=== PATIENT | male | born 1945 | race Caucasian/White ===

== ENCOUNTER → 2017-04-30 | Outpatient (CLI) | payer MEDICARE, OTHER ==
[2004-08-20 09:15] VITALS: TEMP 97.5
[~2017-04-30] MED LIST: COUMADIN4 MG PO; LOMOTIL TAB 01 UDTAB PO; LOTENSIN40 MG PO; NEXIUM 40MG40 MG PEG; PENTASA PO; PERCOCET 325 MG1 TA2 PO; PHENERGAN 25 TA25 MG PO; ZOCOR
== END ==
LOC: COL.VAS 14:01
DX: C83.39 Diffuse large B-cell lymphoma, extranodal and solid organ sites (principal); I25.10 Atherosclerotic heart disease of native coronary artery without angina pectoris; I51.7 Cardiomegaly

== ENCOUNTER → 2018-04-04 | Outpatient (CLI) | payer MEDICARE, OTHER | LOC: COL.RAD 10:15 | DX: Z01.818 Encounter for other preprocedural examination (principal); C85.89 Other specified types of non-Hodgkin lymphoma, extranodal and solid organ sites; Z98.890 Other specified postprocedural states | CPT/HCPCS: A9585 ==

== ENCOUNTER → 2021-07-03 | Outpatient (CLI) | payer MEDICARE, OTHER | LOC: COL.RAD 08:16 | DX: C85.90 Non-Hodgkin lymphoma, unspecified, unspecified site (principal); G93.89 Other specified disorders of brain; Z98.890 Other specified postprocedural states | CPT/HCPCS: A9575 ==